=== PATIENT | female | born 1975 | race African-American/Black ===

== ENCOUNTER → 2024-10-22 | Outpatient (CLI) | payer OTHER ==
--- NOTE | 2024-10-22 16:47 | HMCSR ---
APPROVED REPORT EXAM: Two-dimensional and M-mode echocardiogram with Doppler and color Doppler. INDICATION ICD: Non-rheumatic aortic valve regurgitation I35.1 2D Dimensions RVDd3.5 cmLVEF(%)68.0 (>50%)LA ESV INDEX (BP)39.18 mL/m2 IVSd1.2 (0.7-1.1cm)FS(%)38 % LVDd4.5 (3.8-5.6cm)LA (2D)4.9 (1.6-4.0cm) PWd1.2 (0.7-1.1cm)Ao Root(2D)3.0 (2.0-3.7cm) IVSs1.4 cmLVOT diam2.2 (1.8-2.4cm) LVDs2.8 (2.5-4.0cm) PWs1.4 cm M-Mode Dimensions EPSS0.6 cm LA (MM)4.4 (1.6-4.0cm) Ao Root(MM)2.9 (2.0-3.7cm) Aortic Valve AoV Vmax1.2 m/Jocy Peak GR5.8 mmHgLVOT Vmax1.0 m/s AoV VTI0.3 mAo Mean GR3.2 mmHgLVOT VTI0.23 m MARIA LUISA (VMAX)3.1 cm2AVA (VTI) 3.1 cm2 Mitral Valve MV E Vmax80.3 cm/sDECEL Nesw933 ms MV A Vmax59.2 cm/sP 1/2 T58 ms E/A ratio1.4MVA (PHT)3.8 cm2 TDI E/E' Medial4.8 Pulmonary Valve PV Vmax0.9 m/s Tricuspid Valve TR Vmax2.3 m/sRAP (EST) 3 oiTmQREX22.2 mmHg TR Peak GR21.2 mmHg Left Ventricle Left ventricular cavity size is normal. There is normal LV segmental wall motion. Mild left ventricul ar wall thickness. The Ejection Fraction is 55-60%. The left ventricular diastolic function is normal . Right Ventricle The right ventricle is normal size. The right ventricular systolic function is normal. Atria The left atrium is mildly dilated. The right atrium size is normal. Aortic Valve The aortic valve is normal in structure and function. Bioprosthetic aortic valve is present. Prosthet ic aortic valve is normal in appearance and well seated. No aortic regurgitation is present. There is no aortic valvular stenosis. Mitral Valve The mitral valve is normal in structure. There is no evidence of significant mitral regurgitation. Th ere is no mitral valve stenosis. Tricuspid Valve The tricuspid valve is normal in structure. There is trace tricuspid valve regurgitation noted. Pulmonic Valve The pulmonary valve is normal in structure. There is trace pulmonic valvular regurgitation. Great Vessels The aortic root is normal in size. The IVC is normal in size and collapses >50% with inspiration. Pericardium There is no pericardial effusion. Conclusion Mild left ventricular wall thickness. The Ejection Fraction is 55-60%.
== END | disposition home or self-care (01) ==
LOC: RAH 08:50
PROVIDERS: ATTEND Internal Medicine Cardiovascular Disease
DX: Z13.6 Encounter for screening for cardiovascular disorders (principal); I35.1 Nonrheumatic aortic (valve) insufficiency; I11.9 Hypertensive heart disease without heart failure; I71.21 Aneurysm of the ascending aorta, without rupture; Z98.890 Other specified postprocedural states; Z95.2 Presence of prosthetic heart valve
CPT/HCPCS: 93306